=== PATIENT | female | born 1960 | race African-American/Black ===

== ENCOUNTER 2019-01-05 08:15 | Inpatient (IN) | payer OTHER ==
[2019-01-03 09:36] VITALS: BMI 28.8
[2019-01-05] MEDS ORDERED: GABAPENTIN 300 MG CAPSULE (FP) PO STA (10:41)
[2019-01-05] MEDS ORDERED: oxyCODONE HCL 10 MG SUSTAINED ACTING TABLET PO STA (10:41)
[2019-01-05] MEDS ORDERED: MIDAZOLAM HCL 2 MG/2 ML SINGLE DOSE VIAL ONE ×2 (13:47→16:15)
[2019-01-05] MEDS ORDERED: BUPIVACAINE LIPOSOME/PF (EXPAREL) 266 MG/20 ML VIAL ONE (13:48)
[2019-01-05] MEDS ORDERED: BUPIVACAINE HCL/PF (5 MG/ML) 30 ML VIAL IJ ONE (13:48)
[2019-01-05] MEDS ORDERED: THROMBIN (RECOMBINANT) 5,000 UNIT VIAL TP ONE (14:02)
[2019-01-05] MEDS ORDERED: BUPIVACAINE HCL/PF 0.5% (5MG/ML) 10 ML VIAL ONE (14:13)
[2019-01-05] MEDS ORDERED: ceFAZolin SODIUM 1 GM VIAL ONE (14:36)
[2019-01-05] MEDS ORDERED: ONDANSETRON 4 MG/2 ML VIAL ONE (14:36)
[2019-01-05] MEDS ORDERED: THROMBIN (BOVINE) 5,000 UNIT VIAL TP ONE (15:00)
[2019-01-05] MEDS ORDERED: ONDANSETRON 4 MG/2 ML VIAL IVPUSH PRN ×2 (16:51→16:55)
[2019-01-05] MEDS ORDERED: PROMETHAZINE HCL 25 MG/1 ML VIAL IVPB PRN (16:51)
[2019-01-05] MEDS ORDERED: oxyCODONE HCL 5 MG TABLET PO PRN (16:51)
[2019-01-05] MEDS ORDERED: LACTATED RINGERS SOLUTION 1,000 ML IV SCH (17:00)
[2019-01-05] MEDS ORDERED: ACETAMINOPHEN 1000 MG/100 ML VIAL (NON FORMULARY) IVPB ONE (17:06)
--- NOTE | 2019-01-05 17:15 | OP ---
Operative Note - Note: Operative Date: 01/05/19 Pre-Operative Diagnosis: lumbar spondylolisthesis Operation: posterior lumbar decompression, instrumenation, fusion. Transforaminal interbody lumbar L4-L5 fusion with allograft and neuromonitoring Surgeon: Jerzy Kimble Director Behavioral Health: Maru Acosta Anesthesiologist/BUDGET ENGINEER: Kasia Gonzalez Anesthesia: Spinal Estimated Blood Loss (mls): 30 Fluid Volume Replaced (mls): 800 Operative Report Dictated: Yes
--- NOTE | 2019-01-05 17:16 | SURG ---
Surgery Supervisor Pipe Finishing Note Supervisor Pipe Finishing: Maru Acosta PA-C Date of Service: 01/05/19 Diagnosis: lumbar spondylolisthesis Procedure: posterior lumbar decompression, instrumenation, fusion. Transforaminal interbody lumbar L4-L5 fusion with allograft and neuromonitoring I was present for the entirety of the operative procedure. For further detail, please refer to operative report.
[2019-01-05] MEDS ORDERED: ACETAMINOPHEN INJECTION 100 ML IVPB ONE (17:17)
[2019-01-05] MEDS ORDERED: ACETAMINOPHEN 325 MG TABLET (FP) PO SCH (18:00)
[2019-01-05] MEDS: diazePAM 2 MG TABLET PO SCH (19:30)
[2019-01-05] MEDS: ACETAMINOPHEN 325 MG TABLET (FP) PO SCH (22:40)
[2019-01-05] MEDS: CEFAZOLIN 1 GM/D5W 1 GM/50 ML BAG IVPB SCH (22:41)
[2019-01-05] MEDS: oxyCODONE HCL 5 MG TABLET PO PRN (22:41)
[2019-01-06] MEDS: KETOROLAC TROMETHAMINE 30 MG/1 ML VIAL IVPUSH PRN ×2 (00:29→06:55)
[2019-01-06] MEDS: ACETAMINOPHEN 325 MG TABLET (FP) PO SCH (06:56)
[2019-01-06] MEDS: CEFAZOLIN 1 GM/D5W 1 GM/50 ML BAG IVPB SCH (06:57)
[2019-01-06 07:41] LABS: HEMATOCRIT 33.4 % (32.4-45.2); HEMOGLOBIN 11.2 GM/dl (10.7-15.3); MCH 30.7 pg (25.7-33.7); MCHC 33.6 g/dl (32.0-36.0); MEAN CELL VOLUME 91.4 fl (80-96); MEAN PLT VOLUME 9.4 fl (7.5-11.1); PLATELET COUNT 185 K/MM3 (134-434); RBC 3.66 M/mm3 (3.60-5.2); RDW 13.3 % (11.6-15.6); WHITE BLOOD COUNT 7.4 K/mm3 (4.0-10.8)
[2019-01-06 07:46] LABS: CALCIUM 9.4 mg/dl (8.5-10); CREATININE 1.1 mg/dl (0.55-1.3); POTASSIUM 4.4 mmol/L (3.5-5.1)
--- NOTE | 2019-01-06 08:06 | DS ---
Physical Exam: SUBJECTIVE: Patient seen and examined this am she has no complaints of CP/SOB. No tingling/numbness to LE or pain. Urinating without difficulty. OBJECTIVE: Vital Signs Temperature 98.4 F 01/06/19 04:00 Pulse Rate 58 L 01/06/19 04:00 Respiratory Rate 20 01/06/19 04:00 Blood Pressure 110/57 L 01/06/19 04:00 O2 Sat by Pulse Oximetry (%) 98 01/06/19 07:49 PHYSICAL EXAM GENERAL: The patient is awake, alert, and fully oriented, in no acute distress. LUNGS: Breath sounds equal, clear to auscultation bilaterally. HEART: Regular rate and rhythm. ABDOMEN: Soft, nontender, nondistended, normoactive bowel sounds. EXTREMITIES: soft, non-tender, no swelling noted. SCDs in place. NEUROLOGICAL: Normal speech, gait not observed. 5/5 dorsi/plantar flexion b/l. BACK: Dressing c/d/i LABS CBC,CMP WBC 7.4 K/mm3 (4.0-10.8) 01/06/19 07:15 RBC 3.66 M/mm3 (3.60-5.2) 01/06/19 07:15 Hgb 11.2 GM/dl (10.7-15.3) 01/06/19 07:15 Hct 33.4 % (32.4-45.2) 01/06/19 07:15 MCV 91.4 fl (80-96) 01/06/19 07:15 MCH 30.7 pg (25.7-33.7) 01/06/19 07:15 MCHC 33.6 g/dl (32.0-36.0) 01/06/19 07:15 RDW 13.3 % (11.6-15.6) 01/06/19 07:15 Plt Count 185 K/MM3 (134-434) 01/06/19 07:15 MPV 9.4 fl (7.5-11.1) 01/06/19 07:15 Sodium 137 mmol/L (136-145) 01/06/19 07:15 Potassium 4.4 mmol/L (3.5-5.1) 01/06/19 07:15 Chloride 104 mmol/L (98-107) 01/06/19 07:15 Carbon Dioxide 28 mmol/L (21-32) 01/06/19 07:15 Anion Gap 5 MMOL/L (8-16) L 01/06/19 07:15 BUN 15.0 mg/dl (7-18) 01/06/19 07:15 Creatinine 1.1 mg/dl (0.55-1.3) 01/06/19 07:15 Est GFR (CKD-EPI)AfAm 65.00 01/06/19 07:15 Est GFR (CKD-EPI)NonAf 56.08 01/06/19 07:15 Random Glucose 114 mg/dl (74-106) H 01/06/19 07:15 Calcium 9.4 mg/dl (8.5-10) 01/06/19 07:15 HOSPITAL COURSE: The patient was admitted to the Med-Surg Unit after an elective repair of their lumbar spondylolisthesis. Now, s/p L4-5 TLIF. The day of surgery, the patient ambulated the hallways with assistance. Narcotic and non-narcotic pain management control was achieved with an oral and IV approach. An xray was obtained and confirmed hardware placement at L4-5, no fractures or dislocations. Tawnya-operative IV ABX were administered. DVT prophylaxis was achieved with SCDs and early ambulation. The patient ambulated with Physical Therapy and no services were recommended upon discharge. Narcotic scripts and or muscle relaxants were checked with [place] TECHNICAL ASSISTANT prior to escibe. The discharge instructions and an oral pain management plan were reviewed with the patient. All questions answered. Above plan discussed with Dr. Kimble and agreed. Date of Admission:01/05/19 Date of Discharge: 01/06/19 Minutes to complete discharge: 20 <Maru Acosta - Last Filed: 01/06/19 14:42> Physical Exam: SUBJECTIVE: Patient seen and examined OBJECTIVE: Vital Signs Temperature 98.7 F 01/06/19 14:15 Pulse Rate 67 01/06/19 14:15 Respiratory Rate 20 01/06/19 14:15 Blood Pressure 136/74 01/06/19 14:15 O2 Sat by Pulse Oximetry (%) 100 01/06/19 14:15 PHYSICAL EXAM GENERAL: The patient is awake, alert, and fully oriented, in no acute distress. HEAD: Normal with no signs of trauma. EYES: PERRL, extraocular movements intact, sclera anicteric, conjunctiva clear. ENT: Ears normal, nares patent, oropharynx clear without exudates, moist mucous membranes. NECK: Trachea midline, full range of motion, supple. LUNGS: Breath sounds equal, clear to auscultation bilaterally, no wheezes, no crackles, no accessory muscle use. HEART: Regular rate and rhythm, S1, S2 without murmur, rub or gallop. ABDOMEN: Soft, nontender, nondistended, normoactive bowel sounds, no guarding, no rebound, no hepatosplenomegaly, no masses. EXTREMITIES: 2+ pulses, warm, well-perfused, no edema. NEUROLOGICAL: Cranial nerves II through XII grossly intact. Normal speech, gait not observed. PSYCH: Normal mood, normal affect. SKIN: Warm, dry, normal turgor, no rashes or lesions noted. LABS CBC,CMP WBC 7.4 K/mm3 (4.0-10.8) 01/06/19 07:15 RBC 3.66 M/mm3 (3.60-5.2) 01/06/19 07:15 Hgb 11.2 GM/dl (10.7-15.3) 01/06/19 07:15 Hct 33.4 % (32.4-45.2) 01/06/19 07:15 MCV 91.4 fl (80-96) 01/06/19 07:15 MCH 30.7 pg (25.7-33.7) 01/06/19 07:15 MCHC 33.6 g/dl (32.0-36.0) 01/06/19 07:15 RDW 13.3 % (11.6-15.6) 01/06/19 07:15 Plt Count 185 K/MM3 (134-434) 01/06/19 07:15 MPV 9.4 fl (7.5-11.1) 01/06/19 07:15 Sodium 137 mmol/L (136-145) 01/06/19 07:15 Potassium 4.4 mmol/L (3.5-5.1) 01/06/19 07:15 Chloride 104 mmol/L (98-107) 01/06/19 07:15 Carbon Dioxide 28 mmol/L (21-32) 01/06/19 07:15 Anion Gap 5 MMOL/L (8-16) L 01/06/19 07:15 BUN 15.0 mg/dl (7-18) 01/06/19 07:15 Creatinine 1.1 mg/dl (0.55-1.3) 01/06/19 07:15 Est GFR (CKD-EPI)AfAm 65.00 01/06/19 07:15 Est GFR (CKD-EPI)NonAf 56.08 01/06/19 07:15 Random Glucose 114 mg/dl (74-106) H 01/06/19 07:15 Calcium 9.4 mg/dl (8.5-10) 01/06/19 07:15 HOSPITAL COURSE: Date of Admission:01/05/19 Date of Discharge: 01/09/19 Patient seen and examined Agree with above D/C Planning <Jerzy Kimble - Last Filed: 01/09/19 10:34> Visit type - Case Type Case Type: Scheduled - Emergency Emergency Visit: No - New patient This patient is new to me today: No <Maru Acosta - Last Filed: 01/06/19 14:42>
[2019-01-06] MEDS: diazePAM 2 MG TABLET PO SCH (10:08)
[2019-01-06] MEDS: oxyCODONE HCL 5 MG TABLET PO PRN (10:09)
--- NOTE | 2019-01-06 10:31 | PN ---
Progress Note (short form) - Note Progress Note: ANESTHESIA POSTOP 58 YO FEMALE POD#1 S/P LUMBAR FUSION, SPINAL, PNB Patient sitting and eating breakfast. Pain adequately controlled. No n/v. VSS, Afebrile Continue current care. Encouraged IS and ambulation as directed by surgical team.
[2019-01-06 14:16] VITALS: BP 136/74; PULSE 67; TEMP 98.7
--- NOTE | 2019-01-07 10:36 | OP ---
DATE OF OPERATION: 01/05/2019 PREOPERATIVE DIAGNOSES: 1. Spinal stenosis, L4-L5. 2. Spondylolisthesis, L4-L5. POSTOPERATIVE DIAGNOSES: 1. Spinal stenosis, L4-L5. 2. Spondylolisthesis, L4-L5. PROCEDURES PERFORMED: 1. Transforaminal lumbar interbody fusion, L4-L5. 2. Placement of instrumentation, L4-L5. 3. Placement of prosthetic cage. SURGEON: Jerzy Kimble MD OFFENSIVE COORDINATOR: PRATIMA Llanes ESTIMATED BLOOD LOSS: 60 mL. INTRAVENOUS FLUIDS: Per Anesthesia. ANESTHESIA: Spinal/TLIP. COMPLICATIONS: There were none. DISPOSITION: Patient brought to the PACU in stable condition. INDICATIONS FOR SURGERY: The patient is a 58-year-old female who has been suffering from pain from her back down her legs. X-rays and MRI were completed, which noted that she had spinal stenosis at L4-L5 secondary to a spondylolisthesis. She had gone through an exhaustive course of treatment for this which included medications, physical therapy, as well as injections. Unfortunately, her pain continued to persist despite all this. At this point, risks, benefits, and alternatives were discussed, and the patient consented to surgery. OPERATIVE NOTE: Patient was brought to the operating room by the anesthesia staff. After appropriate patient identification was performed, spinal anesthesia was given, TLIP block was also given. Patient was able to position herself prone onto the OR table with all areas of bony prominences well-padded at this time. The C-arm was brought in, and the L4 and L5 pedicles were marked off. Her back was prepped and draped in a sterile manner. At this point, a time-out was completed. Incisions were made bilaterally over the L4 and L5 pedicles. Dissection was carried down to the fascia. Fascia was split at this time. Under C-arm guidance, trocars were advanced into both the L4 and L5 pedicles, the trocar wires were inserted, tap was performed. On the left-hand side, retractor blades were set up to expose the L4-L5 facet joint. The facet joint was removed. The disc was entered using a series of pituitaries, Kerrisons, and curettes. The discectomy was completed. The endplates were decorticated at this time. Bone graft was laid down, and cage filled with bone graft was placed in. Tulip heads were placed on, a diann was measured and placed in, caps and compression were applied. On the right-hand side, a diann was measured and placed in. Caps and compression were applied. All extra instrumentation was removed. AP and lateral x-rays confirmed the instrumentation to be in good position. The fascia was closed with a No. 1 Vicryl suture. The subcutaneous tissues were closed with 2-0 Vicryl suture. Skin was closed with 3-0 Monocryl suture. Dermabond was applied. Steri-Strips were applied. Sterile dressings applied. Patient was placed supine, left the OR and went to the PACU in stable condition. [place] [id number]
== END 2019-01-06 13:52 | disposition home or self-care (01) | DRG 304 ==
LOC: FM/S 10:40
PROVIDERS: ADMIT Orthopaedic Surgery Orthopaedic Surgery of the Spine; ATTEND Orthopaedic Surgery Orthopaedic Surgery of the Spine
PROC: 0SB20ZZ Excision of Lumbar Vertebral Disc, Open Approach (ICD-10-PCS; 2019-01-05)
PROC: 4A10X4G Monitoring of Central Nervous Electrical Activity, Intraoperative, External Approach (ICD-10-PCS; 2019-01-05)
PROC: 0SG00AJ Fusion of Lumbar Vertebral Joint with Interbody Fusion Device, Posterior Approach, Anterior Column, Open Approach (ICD-10-PCS; principal; 2019-01-05 15:00)
DX: M48.061 Spinal stenosis, lumbar region without neurogenic claudication (principal); M43.16 Spondylolisthesis, lumbar region
CPT/HCPCS: 36415; 72100-TC-FY; 80048; 85027; 94760; 97116-GP; 97161-GP; J0131